=== PATIENT | female | born 1965 | race Caucasian/White ===

== ENCOUNTER → 2017-06-02 | Outpatient (CLI) | payer OTHER ==
[~2017-06-02] MED LIST: LISI5 PO
== END ==
LOC: LAB 19:00 → LAB SHORT 19:00
DX: C34.92 Malignant neoplasm of unspecified part of left bronchus or lung (principal); D70.1 Agranulocytosis secondary to cancer chemotherapy; T45.1X5A Adverse effect of antineoplastic and immunosuppressive drugs, initial encounter
CPT/HCPCS: 87493

== ENCOUNTER 2017-06-20 19:29 | Emergency (ER) | payer OTHER ==
[~2017-06-20] VITALS: Ht 160 cm; Wt 83.9 kg
[2017-06-20 20:46] LABS: BASOPHILS ABSOLUTE AUTO 0.02 K/mm3 (0.00-0.23); BASOPHILS PERCENT AUTO 0 % (0-2); EOSINOPHILS ABSOLUTE AUTO 0.04 K/mm3 (0.00-0.68); EOSINOPHILS PERCENT AUTO 1 % (0-6); Hematocrit 36.8 % (33.0-51.0); IMMATURE GRAN ABSOLUTE AUTO 0.04 K/mm3 (0.00-0.10); IMMATURE GRAN PERCENT AUTO 1 % (0-1); LYMPHOCYTES ABSOLUTE AUTO 1.78 K/mm3 (0.84-5.20); LYMPHOCYTES PERCENT AUTO 31 % (21-46); MONOCYTES ABSOLUTE AUTO 0.47 K/mm3 (0.16-1.47); MONOCYTES PERCENT AUTO 8 % (4-13); Mean Corpuscular HGB 39.6 pg (26.0-34.0); Mean Corpuscular HGB Conc 35.3 g/dL (31.5-36.5); Mean Corpuscular Volume 112 fL (80-100); Mean Platelet Volume 9.2 fL (9.1-12.4); NEUTROPHILS ABSOLUTE AUTO 3.49 K/mm3 (1.96-9.15); NEUTROPHILS PERCENT AUTO 60 % (41-73); Platelet Count 299 K/mm3 (150-400); RDW Coefficient Variation 11.4 % (11.7-14.2); RDW Standard Deviation 46.6 fL (35.1-46.3); Red Blood Cell Count 3.28 M/mm3 (3.80-5.20); White Blood Cell Count 5.84 K/mm3 (4.00-11.30)
[2017-06-20 21:04] LABS: Alanine Aminotransfer (ALT/SGP 30 U/L (12-78); Albumin, Blood 3.9 g/dL (3.4-5.0); Alk Phos 90 U/L (50-136); Anion Gap 10 mmol/L (6-16); Aspartate Aminotrans (AST/SGOT 23 U/L (12-37); Bilirubin, Total 0.1 mg/dL (0.1-1.0); Blood Urea Nitrogen 9 mg/dL (8-24); Bun/Creatinine Ratio 12.8 (12.0-20.0); CO2, Blood 20 mmol/L (21-32); Calcium, Blood 8.5 mg/dL (8.5-10.1); Chloride, Blood 112 mmol/L (98-108); Globulin, Blood 3.9 g/dL (2.2-4.0); Glomerular Filtration Rate >60 (60-); Glucose, Blood 110 mg/dL (70-99); Potassium, Blood 4.1 mmol/L (3.5-5.5); Sodium, Blood 142 mmol/L (136-145); Total Protein, Blood 7.8 g/dL (6.4-8.2); Troponin I <0.015 ng/mL (0.000-0.040)
[2017-06-20] MEDS ORDERED: Norco 5-325 Ta1 EACH PO (23:34)
== END 2017-06-21 00:08 | disposition home or self-care (01) ==
LOC: ER 19:29
PROVIDERS: Physician Assistant
DX: R07.81 Pleurodynia (principal); Z79.899 Other long term (current) drug therapy; I10 Essential (primary) hypertension; F17.210 Nicotine dependence, cigarettes, uncomplicated
CPT/HCPCS: 36415; 71260; 80053; 83690; 84484; 85025; 93005; 93010; J3010; J7030; Q9967

== ENCOUNTER → 2017-07-18 | Outpatient (CLI) | payer OTHER ==
[~2017-07-18] MED LIST changes: +Norco 5-325 Ta1 EACH PO
== END | disposition home or self-care (01) ==
LOC: LAB SHORT 14:28 → LAB EV 14:28
DX: N39.0 Urinary tract infection, site not specified (principal)
CPT/HCPCS: 87077; 87086; 87186

== ENCOUNTER 2017-08-11 16:44 | Emergency (ER) | payer OTHER ==
[~2017-08-11] VITALS: Ht 157.5 cm; Wt 86.2 kg
[~2017-08-11 16:44] MED LIST changes: +ADVIL100 MG; +ALBU90OI; +CEFD300 PO; +CIPR500 PO; +CITA20 PO; +CLOP75; +LATANOPROST2.5 ML; +LEVSOD50; +MONT10T; +PANT40; +Percocet 5-3251 EACH PO; +Prinivil10 MG PO; +SIMV10; +TIMO10T; +TRAZ50 PO; +ZOLP10 PO
== END 2017-08-11 17:47 | disposition left against medical advice (07) ==
LOC: ER 16:44
DX: Z53.21 Procedure and treatment not carried out due to patient leaving prior to being seen by health care provider (principal)

== ENCOUNTER 2017-08-26 01:33 | Emergency (ER) | payer OTHER ==
[~2017-08-26] VITALS: Ht 160 cm; Wt 86.2 kg
[2017-08-26] MEDS ORDERED: Pravastatin Sod40 MG PO (02:08)
[2017-08-26] MEDS ORDERED: LIDO700A20 TOP (03:15)
[2017-08-26] MEDS ORDERED: Percocet 5-3251 EACH PO (03:15)
[2017-08-26] MEDS ORDERED: IBUP600 PO (03:15)
== END 2017-08-26 03:35 | disposition home or self-care (01) ==
LOC: ER 01:33
DX: R07.81 Pleurodynia (principal); Z79.899 Other long term (current) drug therapy; Z87.891 Personal history of nicotine dependence; W01.0XXA Fall on same level from slipping, tripping and stumbling without subsequent striking against object, initial encounter
CPT/HCPCS: 71101; 99283-25

== ENCOUNTER 2017-09-08 21:24 | Emergency (ER) | payer OTHER ==
[~2017-09-08] VITALS: Ht 154.9 cm; Wt 65.8 kg
[~2017-09-08 21:24] MED LIST changes: +IBUP600 PO; +LIDO700A20 TOP; +Pravastatin Sod40 MG PO
== END 2017-09-09 00:23 | disposition left against medical advice (07) ==
LOC: ER 21:24
DX: Z53.21 Procedure and treatment not carried out due to patient leaving prior to being seen by health care provider (principal)
CPT/HCPCS: 71046

== ENCOUNTER 2018-04-23 01:13 | Inpatient (IN) | payer OTHER ==
[~2018-04-23] VITALS: Ht 157.5 cm; Wt 90.1 kg
[2018-04-23 02:16] LABS: Source, Urine Clean Catch
[2018-04-23 02:20] LABS: BASOPHILS ABSOLUTE AUTO 0.04 K/mm3 (0.00-0.23); BASOPHILS PERCENT AUTO 1 % (0-2); Bilirubin, Urine Neg (Neg); Blood, Urine 4+ (Neg); EOSINOPHILS PERCENT AUTO 0 % (0-6); Glucose Qualitative, Urine Neg (Neg); Hematocrit 43.4 % (33.0-51.0); Hemoglobin 13.9 g/dL (11.5-16.0); IMMATURE GRAN ABSOLUTE AUTO 0.09 K/mm3 (0.00-0.10); IMMATURE GRAN PERCENT AUTO 1 % (0-1); Ketones, Urine Neg (Neg); LYMPHOCYTES ABSOLUTE AUTO 0.92 K/mm3 (0.84-5.20); LYMPHOCYTES PERCENT AUTO 11 % (21-46); Leukocyte Esterase, Urine Neg (Neg); MONOCYTES PERCENT AUTO 1 % (4-13); Mean Corpuscular HGB 32.6 pg (26.0-34.0); Mean Corpuscular Volume 102 fL (80-100); Mean Platelet Volume 8.9 fL (9.1-12.4); NEUTROPHILS ABSOLUTE AUTO 7.46 K/mm3 (1.96-9.15); NEUTROPHILS PERCENT AUTO 87 % (41-73); Nitrite, Urine Neg (Neg); Platelet Count 522 K/mm3 (150-400); Protein, Urine 4+ (Neg); RDW Coefficient Variation 12.4 % (11.7-14.2); RDW Standard Deviation 46.8 fL (35.1-46.3); Red Blood Cell Count 4.27 M/mm3 (3.80-5.20); Urobilinogen, Urine NORM (Normal); White Blood Cell Count 8.61 K/mm3 (4.00-11.30)
[2018-04-23 02:25] LABS: Appearance, Urine Clear (Clear); Bacteria Few /hpf; Color, Urine Yellow (P-Yellow); White Blood Cells, Urine 0-2 /hpf (0-5)
[2018-04-23 02:26] LABS: Squamous Epithelial Cells Rare /hpf (Few)
[2018-04-23 02:34] LABS: U Amphetamine Screen Not Detected; U Barbituate Screen Not Detected; U Benzodiazapine Screen Not Detected; U Buprenorphine Screen Not Detected; U Cannabinoids Screen Not Detected; U Cocaine Screen Not Detected; U Methadone Screen Not Detected; U Methamphetamine Screen Not Detected; U Opiates Screen Not Detected; U Oxycodone Screen Not Detected; U Phencyclidine Screen Not Detected; U Propoxyphene Screen Not Detected
[2018-04-23 02:37] LABS: Alanine Aminotransfer (ALT/SGP 43 U/L (12-78); Albumin, Blood 3.4 g/dL (3.4-5.0); Albumin/Globulin Ratio 0.7 (0.8-1.8); Alk Phos 122 U/L (50-136); Anion Gap 16 mmol/L (6-16); Aspartate Aminotrans (AST/SGOT 29 U/L (12-37); Bilirubin, Total 0.1 mg/dL (0.1-1.0); Blood Urea Nitrogen 8 mg/dL (8-24); Bun/Creatinine Ratio 12.5 (12.0-20.0); CO2, Blood 17 mmol/L (21-32); Calcium, Blood 8.8 mg/dL (8.5-10.1); Chloride, Blood 107 mmol/L (98-108); Creatinine, Blood 0.64 mg/dL (0.40-1.00); Globulin, Blood 4.9 g/dL (2.2-4.0); Glomerular Filtration Rate >60 (60-); Glucose, Blood 207 mg/dL (70-99); Potassium, Blood 4.1 mmol/L (3.5-5.5); Sodium, Blood 140 mmol/L (136-145); Total Protein, Blood 8.3 g/dL (6.4-8.2)
[2018-04-23 02:52] LABS: PCO2 Arterial 26.5 mmHg (35-45); PO2 Arterial 99.2 mmHg (80-100); pH Blood Arterial 7.33 (7.35-7.45)
[2018-04-23] MEDS ORDERED: IBUP600 PO (13:17)
[2018-04-23] MEDS ORDERED: (None)20 M1 PO (13:17)
[2018-04-23] MEDS ORDERED: Omeprazole20 M1 PO (13:18)
[2018-04-23] MEDS ORDERED: ALBU3IS INH (13:18)
[2018-04-23] MEDS ORDERED: CITA20 PO (13:20)
[2018-04-23] MEDS ORDERED: HYDHCL25 PO (13:20)
[2018-04-23] MEDS ORDERED: GUAIFEN-CODEINE10 ML PO (13:21)
[2018-04-23] MEDS ORDERED: ONE DAILY FOR1 EACH PO (13:22)
[2018-04-23 22:47] LABS: Adenovirus Not Detected (NOT DETECT); Bordetella pertussis Not Detected (NOT DETECT); Chlamydophila pneumoniae Not Detected (NOT DETECT); Coronavirus 229E Not Detected (NOT DETECT); Coronavirus HKU1 Not Detected (NOT DETECT); Coronavirus NL63 Not Detected (NOT DETECT); Coronavirus OC43 Not Detected (NOT DETECT); Human Metapneumovirus Not Detected (NOT DETECT); Human Rhinovirus/Enterovirus Not Detected (NOT DETECT); Influenza A Not Detected (NOT DETECT); Influenza A/2009-H1 Not Detected (NOT DETECT); Influenza A/H1 Not Detected (NOT DETECT); Influenza A/H3 Not Detected (NOT DETECT); Influenza B Not Detected (NOT DETECT); Mycoplasma pneumoniae Not Detected (NOT DETECT); Parainfluenza Virus 1 Not Detected (NOT DETECT); Parainfluenza Virus 2 Not Detected (NOT DETECT); Parainfluenza Virus 3 Not Detected (NOT DETECT); Parainfluenza Virus 4 Not Detected (NOT DETECT); Respiratory Syncytial Virus Not Detected (NOT DETECT)
--- NOTE | 2018-04-24 00:37 | NUR ---
DR MONZON ASKED DR MONZON IF HE WANTED THE LACTIC ACID LEVEL RECHECKED AND HE SAID "NO."
[2018-04-24] MEDS ORDERED: IMFINZI500 MG/10 IV (02:25)
--- NOTE | 2018-04-24 05:08 | NUR ---
SHIFT SUMMARY PT ARRIVED TO ROOM APPROX 1944. INDEPENDENT IN ROOM A/O C/O SHEEHAN AND GIVEN TYLENOL. TELE SHOWED NSR @ 98 PER SALESPERSON USED CARS. SHE WAS ABLE TO DOZE ON AND OFF T/O NIGHT. MEDICATED FOR COUGH. BREATHING TX SCHEDULED. CALL LIGHT IN REACH
[2018-04-24 05:14] LABS: Hematocrit 33.4 % (33.0-51.0); Hemoglobin 10.8 g/dL (11.5-16.0); Mean Corpuscular HGB 32.5 pg (26.0-34.0); Mean Corpuscular HGB Conc 32.3 g/dL (31.5-36.5); Mean Corpuscular Volume 101 fL (80-100); Mean Platelet Volume 9.3 fL (9.1-12.4); Platelet Count 352 K/mm3 (150-400); RDW Coefficient Variation 12.6 % (11.7-14.2); RDW Standard Deviation 46.1 fL (35.1-46.3); Red Blood Cell Count 3.32 M/mm3 (3.80-5.20); White Blood Cell Count 11.57 K/mm3 (4.00-11.30)
[2018-04-24 05:46] LABS: Alanine Aminotransfer (ALT/SGP 24 U/L (12-78); Albumin, Blood 2.7 g/dL (3.4-5.0); Albumin/Globulin Ratio 0.7 (0.8-1.8); Alk Phos 84 U/L (50-136); Anion Gap 9 mmol/L (6-16); Aspartate Aminotrans (AST/SGOT 9 U/L (12-37); Bilirubin, Total 0.5 mg/dL (0.1-1.0); Blood Urea Nitrogen 20 mg/dL (8-24); Bun/Creatinine Ratio 21.8 (12.0-20.0); CO2, Blood 26 mmol/L (21-32); Calcium, Blood 8.6 mg/dL (8.5-10.1); Chloride, Blood 104 mmol/L (98-108); Creatinine, Blood 0.92 mg/dL (0.40-1.00); Globulin, Blood 3.8 g/dL (2.2-4.0); Glomerular Filtration Rate >60 (60-); Glucose, Blood 230 mg/dL (70-99); Potassium, Blood 4.2 mmol/L (3.5-5.5); Sodium, Blood 139 mmol/L (136-145); Total Protein, Blood 6.5 g/dL (6.4-8.2)
--- NOTE | 2018-04-24 17:11 | NUR ---
PT AOX4 AND COOPERATIVE OF CARE. PT IS ANXIOUS TODAY AND REQUESTED TO GO OUT TO SMOKE. PT HAD TWO CRITICAL LACTIC ACIDS CALLED PLEASE REFER TO CHART. PT INDEPENDENT IN ROOM AND CALLS APPROPRIATELY. PT IS RECIEVING A PICC LINE AND WAS PRETREATED FOR ANXIETY PER EMAR. PT CONTINUES WITH COUGHING AND SOB. WILL CONTINUE TO MONITOR.
--- NOTE | 2018-04-24 18:35 | NUR ---
ORDERS NOTED AND CONSENT SIGNED FOR PICC PLACEMENT. PT TEACHING ON PROCEDURE. PT HIGH ANXIETY LEVEL DESPITE ANXIETY MED GIVEN PER HER RN. VEIN NOTED VIA US R BASILIC AND PROCEDURE STARTED. ONLY ABLE TO THREAD LINE TO 11 CM NITO. LINE PULLED AND PRESSURE HELD. 2X2 GAUZE AND TRANSPARENT DRESSING APPLIED. REPORT GIVEN TO PTS RN AND SUGGEST IV ANXIETY MEDICATION TO BE GIVEN BEFORE NEXT ATTEMPT. PT AMB TO BRP AND RETURNED TO BED. SIDE RAIL UP X2 AND CALL LIGHT WITHIN REACH. DINNER TRAY SET UP FOR PT.
[2018-04-25 01:33] LABS: Adenovirus F 40/41 Not Detected (NOT DETECT); Astrovirus Not Detected (NOT DETECT); Campylobacter Sp Not Detected (NOT DETECT); Cryptosporidium Not Detected (NOT DETECT); Cyclospora Cayetanensis Not Detected (NOT DETECT); E. Coli O157 Not Detected (NOT DETECT); Entamoeba Histolytica Not Detected (NOT DETECT); Enteroaggregative E. coli-EAEC Not Detected (NOT DETECT); Enteropathogenic E. coli-EPEC Not Detected (NOT DETECT); Enterotoxigenic E. coli-ETEC Not Detected (NOT DETECT); Giardia Lamblia Not Detected (NOT DETECT); Norovirus GI/GII Not Detected (NOT DETECT); Plesiomonas Shigelloides Not Detected (NOT DETECT); Rotavirus A Not Detected (NOT DETECT); Salmonella Sp Not Detected (NOT DETECT); Sapovirus Not Detected (NOT DETECT); Shiga Toxin-prod E. coli-STEC Not Detected (NOT DETECT); Shigella/Enteroin E. coli-EIEC Not Detected (NOT DETECT); Vibrio Cholerae Not Detected (NOT DETECT); Vibrio Sp Not Detected (NOT DETECT); Yersinia Enterocolitica Not Detected (NOT DETECT)
--- NOTE | 2018-04-25 04:20 | NUR ---
ASKED CARLOS LEA IF HE WANTED LACTIC ACID LEVEL RECHECKED AND HE SAID NO.
--- NOTE | 2018-04-25 04:36 | NUR ---
SHIFT SUMMARY INDEPENDENT IN ROOM. C/O OF SHEEHAN AND COUGH AND MEDICATED PER EMAR. DR DOUGLASS SAW HER AND SCHEDULED A BIOPSY FOR 04/25 11AM. NPO AFTER MIDNIGHT. STOOL SAMPLE OBTAINED. SHE WAS ABLE TO SLEEP ON AND OFF T/O NIGHT CALL LIGHT IN REACH
[2018-04-25 04:53] LABS: BASOPHILS ABSOLUTE AUTO 0.01 K/mm3 (0.00-0.23); BASOPHILS PERCENT AUTO 0 % (0-2); EOSINOPHILS PERCENT AUTO 0 % (0-6); Hemoglobin 10.3 g/dL (11.5-16.0); IMMATURE GRAN PERCENT AUTO 1 % (0-1); LYMPHOCYTES ABSOLUTE AUTO 0.55 K/mm3 (0.84-5.20); LYMPHOCYTES PERCENT AUTO 6 % (21-46); MONOCYTES ABSOLUTE AUTO 0.56 K/mm3 (0.16-1.47); MONOCYTES PERCENT AUTO 6 % (4-13); Mean Corpuscular HGB 32.5 pg (26.0-34.0); Mean Corpuscular HGB Conc 32.2 g/dL (31.5-36.5); Mean Corpuscular Volume 101 fL (80-100); Mean Platelet Volume 9.3 fL (9.1-12.4); NEUTROPHILS ABSOLUTE AUTO 7.67 K/mm3 (1.96-9.15); NEUTROPHILS PERCENT AUTO 86 % (41-73); Platelet Count 314 K/mm3 (150-400); RDW Coefficient Variation 12.8 % (11.7-14.2); Red Blood Cell Count 3.17 M/mm3 (3.80-5.20); White Blood Cell Count 8.89 K/mm3 (4.00-11.30)
[2018-04-25 05:08] LABS: Anion Gap 10 mmol/L (6-16); Blood Urea Nitrogen 18 mg/dL (8-24); Bun/Creatinine Ratio 20.5 (12.0-20.0); CO2, Blood 24 mmol/L (21-32); Calcium, Blood 8.3 mg/dL (8.5-10.1); Chloride, Blood 107 mmol/L (98-108); Creatinine, Blood 0.88 mg/dL (0.40-1.00); Glomerular Filtration Rate >60 (60-); Glucose, Blood 207 mg/dL (70-99); Potassium, Blood 3.9 mmol/L (3.5-5.5); Sodium, Blood 141 mmol/L (136-145)
[2018-04-25 05:32] LABS: International Normalized Ratio 0.94
--- NOTE | 2018-04-25 08:25 | NUR ---
PATIENT DID NOT EAT BREAKFAST THIS SHIFT DUE TO BEING NPO AT THIS TIME.
--- NOTE | 2018-04-25 11:09 | NUR ---
PATIENT WAS OFFERED A SHOWER AND DELINED. PATIENT STATED SHE WAS GOOD FOR TODAY.
[2018-04-25 13:07] LABS: Vancomycin, Trough 16.3 ug/mL (5.0-10.0)
--- NOTE | 2018-04-26 04:13 | NUR ---
PT REFUSING LAB DRAW THIS AM.
[2018-04-26 05:48] LABS: BASOPHILS ABSOLUTE AUTO 0.02 K/mm3 (0.00-0.23); BASOPHILS PERCENT AUTO 0 % (0-2); EOSINOPHILS ABSOLUTE AUTO 0.01 K/mm3 (0.00-0.68); EOSINOPHILS PERCENT AUTO 0 % (0-6); Hemoglobin 10.9 g/dL (11.5-16.0); IMMATURE GRAN ABSOLUTE AUTO 0.29 K/mm3 (0.00-0.10); IMMATURE GRAN PERCENT AUTO 4 % (0-1); LYMPHOCYTES PERCENT AUTO 13 % (21-46); MONOCYTES ABSOLUTE AUTO 0.79 K/mm3 (0.16-1.47); MONOCYTES PERCENT AUTO 10 % (4-13); Mean Corpuscular HGB 32.7 pg (26.0-34.0); Mean Corpuscular HGB Conc 32.1 g/dL (31.5-36.5); Mean Corpuscular Volume 102 fL (80-100); NEUTROPHILS ABSOLUTE AUTO 5.83 K/mm3 (1.96-9.15); NEUTROPHILS PERCENT AUTO 73 % (41-73); Platelet Count 291 K/mm3 (150-400); RDW Standard Deviation 47.7 fL (35.1-46.3); Red Blood Cell Count 3.33 M/mm3 (3.80-5.20); White Blood Cell Count 7.94 K/mm3 (4.00-11.30)
--- NOTE | 2018-04-26 06:01 | NUR ---
SHIFT SUMMARY NO ACUTE CHANGES THIS SHIFT. PT PLEASANT AND COOPERATIVE BUT FREQUENTLY ANXIOUS. MEDICATED X 1 W/ XANAX. LUNG SOUNDS WHEEZY IN THE BASES. BREATHING TX'S WHILE AWAKE. PERSISTANT COUGH, PAINFUL FOR PATIENT W/ COUGHING. TESSALON PEARLS HELPFUL. MEDICATED X 1 W/ 650 MG TYLENOL FOR THE PAIN. PLAN FOR CHEST XRAY THIS AM. PT REMAINS ON RA. VSS.
[2018-04-26 06:38] LABS: Anion Gap 7 mmol/L (6-16); Blood Urea Nitrogen 22 mg/dL (8-24); Bun/Creatinine Ratio 31.7 (12.0-20.0); CO2, Blood 27 mmol/L (21-32); Calcium, Blood 8.4 mg/dL (8.5-10.1); Chloride, Blood 106 mmol/L (98-108); Glomerular Filtration Rate >60 (60-); Glucose, Blood 150 mg/dL (70-99); Potassium, Blood 3.4 mmol/L (3.5-5.5); Sodium, Blood 140 mmol/L (136-145)
--- NOTE | 2018-04-26 18:26 | NUR ---
SHIFT SUMMARY PT HAS HAD NO ACUTE CHANGES THIS SHIFT, MEDICATED PER MAR FOR PAIN & COUGH, NO OTHER COMPLAINTS OF ANY KIND. WILL CONT TO MONITOR UNTIL REPORT GIVEN TO ZOE CID.
[2018-04-27 04:55] LABS: Hematocrit 37.7 % (33.0-51.0); Mean Corpuscular HGB 32.6 pg (26.0-34.0); Mean Corpuscular HGB Conc 31.8 g/dL (31.5-36.5); Mean Corpuscular Volume 102 fL (80-100); Mean Platelet Volume 9.3 fL (9.1-12.4); Platelet Count 299 K/mm3 (150-400); RDW Standard Deviation 48.2 fL (35.1-46.3); Red Blood Cell Count 3.68 M/mm3 (3.80-5.20); White Blood Cell Count 9.98 K/mm3 (4.00-11.30)
[2018-04-27 05:16] LABS: Anion Gap 10 mmol/L (6-16); Blood Urea Nitrogen 26 mg/dL (8-24); Bun/Creatinine Ratio 40.4 (12.0-20.0); CO2, Blood 24 mmol/L (21-32); Chloride, Blood 103 mmol/L (98-108); Creatinine, Blood 0.64 mg/dL (0.40-1.00); Glomerular Filtration Rate >60 (60-); Glucose, Blood 221 mg/dL (70-99); Potassium, Blood 4.3 mmol/L (3.5-5.5); Sodium, Blood 137 mmol/L (136-145)
--- NOTE | 2018-04-27 05:38 | NUR ---
SHIFT SUMMARY PT SLEPT FOR FIRST PART OF SHIFT BUT WOKE AT APPROX 0200 AND WAS UNABLE TO FALL BACK ASLEEP. LUNG SOUNDS CONTINUE TO BE WHEEZY AND PT HAS HARSH NONPRODUCTIVE COUGH. PT PAINFUL IN BACK AND RIBS WITH COUGHING. MEDICATED W/ TYLENOL NEEDED. ROBITUSSIN ALSO HELPFUL WITH COUGH. REMAINS ON RA WITH GOOD O2 SATS. VSS. NO ACUTE CHANGES. WILL CONTINUE TO MONITOR.
[2018-04-27 06:24] LABS: BAND PERCENT MAN 2 % (0-8); BASOPHILS PERCENT MAN 0 % (0-2); EOSINOPHILS PERCENT MAN 0 % (0-6); LYMPHOCYTES ABSOLUTE MAN 0.59 K/mm3 (0.84-5.20); LYMPHOCYTES PERCENT MAN 6 % (21-46); METAMYELOCYTE ABSOLUTE MAN 0.09 K/mm3 (0.00-0.00); METAMYELOCYTE PERCENT MAN 1 % (0-0); MONOCYTES ABSOLUTE MAN 1.29 K/mm3 (0.16-1.47); MONOCYTES PERCENT MAN 13 % (4-13); MYELOCYTE ABSOLUTE MAN 0.19 K/mm3 (0.00-0.00); MYELOCYTE PERCENT MAN 2 % (0-0); NEUTROPHILS ABSOLUTE MAN 7.78 K/mm3 (1.96-9.15); SEG NEUTROPHILS PERCENT MAN 76 % (41-73); TOTAL CELLS COUNTED 100
--- NOTE | 2018-04-27 18:18 | NUR ---
SUMMARY PT IS A/O X4, PLEASANT AFFECT HOWEVER @ X'S ANXIOUS/CONCERNED R/T HX OF LUNG CA. SHE IS IND IN ROOM, HAS BEEN UP AMBULATE IN [facility] W/O SIGNIFICANT SHORTNESS OF BREATH. SHE STATE CONTINUING DRY COUGH, PRN TESSALON & GUIF/CODEINE SYRUP PROVIDED FOR RELIEF/CONTROL. DR WEAVERTRATE ORDER INCENTIVE SPIROMETER, PT INSTRUCTED ON USE, @ BEDSIDE. DR STATE TO PROVIDE O2 @ 1-2L VIA N/C FOR SOB, PT HAS USED INTERMITTANTLY, BIOX 95% RA. RT PROVIDING NEB TX'S. DR PENA HAS BEEN CONSULTED FOR PULMOMOLOGY.
--- NOTE | 2018-04-28 05:00 | NUR ---
SHIFT SUMMARY NO ACUTE CHANGES. PT CONTINUES TO FEEL SOB AT TIMES. DID NOT REQUIRE ANY O2 THROUGHOUT THE NIGHT. LUNG SOUNDS CONTINUE TO BE WHEEZY. DRY HACKING COUGH. ROBITUSSIN AND TESSALON PEARLS GIVEN NEEDED. PT PAINFUL W/ COUGHING, TYLENOL 650 MG GIVEN X 1. OTHERWISE PT HAD UNEVENTFUL NIGHT. SLEPT THROUGH MOST OF THE NIGHT. VSS. WILL CONTINUE TO MONITOR.
--- NOTE | 2018-04-28 19:35 | NUR ---
SHIFT SUMMARY- PT SEEMS TO BE FEELING MORE ENERGETIC THIS EVEINING, SHE WALKED DOWN TO THE VENDING MACHINE TO GET SNACK FOODS, STATED SHE HAS THE "MUNCHIES" D/T THE STEROIDS. PT BG HAS BEEN WNL AND SHE HAS NEEDED NO INSULIN COVERAGE. IV LASIX GIVEN THIS MORNING, PT ALERT, ORIENTED AND INDEPENDENT IN THE ROOM. PT CURRENTLY SITTING IN THE CHAIR, CALL LIGHT IN REACH.
[2018-04-29 04:49] LABS: Hematocrit 41.4 % (33.0-51.0); Hemoglobin 13.6 g/dL (11.5-16.0); Mean Corpuscular HGB 32.8 pg (26.0-34.0); Mean Corpuscular HGB Conc 32.9 g/dL (31.5-36.5); Mean Corpuscular Volume 100 fL (80-100); Mean Platelet Volume 9.3 fL (9.1-12.4); Platelet Count 338 K/mm3 (150-400); RDW Coefficient Variation 13.2 % (11.7-14.2); Red Blood Cell Count 4.15 M/mm3 (3.80-5.20); White Blood Cell Count 13.85 K/mm3 (4.00-11.30)
[2018-04-29 05:08] LABS: Anion Gap 11 mmol/L (6-16); Blood Urea Nitrogen 32 mg/dL (8-24); Bun/Creatinine Ratio 45.4 (12.0-20.0); CO2, Blood 24 mmol/L (21-32); Calcium, Blood 8.6 mg/dL (8.5-10.1); Chloride, Blood 100 mmol/L (98-108); Creatinine, Blood 0.71 mg/dL (0.40-1.00); Glomerular Filtration Rate >60 (60-); Glucose, Blood 201 mg/dL (70-99); Potassium, Blood 4.1 mmol/L (3.5-5.5); Sodium, Blood 135 mmol/L (136-145)
[2018-04-29 05:32] LABS: BAND PERCENT MAN 3 % (0-8); BASOPHILS PERCENT MAN 0 % (0-2); EOSINOPHILS PERCENT MAN 0 % (0-6); LYMPHOCYTES ABSOLUTE MAN 1.24 K/mm3 (0.84-5.20); LYMPHOCYTES PERCENT MAN 9 % (21-46); METAMYELOCYTE ABSOLUTE MAN 0.27 K/mm3 (0.00-0.00); METAMYELOCYTE PERCENT MAN 2 % (0-0); MONOCYTES ABSOLUTE MAN 0.69 K/mm3 (0.16-1.47); MONOCYTES PERCENT MAN 5 % (4-13); MYELOCYTE ABSOLUTE MAN 0.13 K/mm3 (0.00-0.00); MYELOCYTE PERCENT MAN 1 % (0-0); NEUTROPHILS ABSOLUTE MAN 11.49 K/mm3 (1.96-9.15); SEG NEUTROPHILS PERCENT MAN 80 % (41-73); TOTAL CELLS COUNTED 100
--- NOTE | 2018-04-29 05:50 | NUR ---
VSS, AFEBRILE, A/O, C/O SOB/LQUUE AND WILL REQUEST BREATHING TREATMENTS PRN, CBG AC HS, INDEPENDENT IN THE ROOM, 1L NC FOR COMFORT, PLEASANT AND FRIENDLY. SLEPT WELL ALL NOC.
[2018-04-29] MEDS ORDERED: ACET325 PO (16:22)
[2018-04-29] MEDS ORDERED: BENZ100A PO (16:22)
[2018-04-29] MEDS ORDERED: BISA10S PR (16:23)
[2018-04-29] MEDS ORDERED: NATURAL CALCIU500 MG PO (16:23)
[2018-04-29] MEDS ORDERED: FURO20 PO (16:24)
[2018-04-29] MEDS ORDERED: NICO21TP TOP (16:25)
[2018-04-29] MEDS ORDERED: HUMALOG KW200 UNIT/1 (16:25)
[2018-04-29] MEDS ORDERED: POTCHL20ER PO (16:26)
[2018-04-29] MEDS ORDERED: ONDA4ODT MM (16:26)
[2018-04-29] MEDS ORDERED: DEEP SEA44 ML (16:27)
[2018-04-29] MEDS ORDERED: PANT40 PO (16:28)
[2018-04-29] MEDS ORDERED: BUDE.25 NEB (16:28)
--- NOTE | 2018-04-29 16:56 | NUR ---
DISCHARGE NOTE PT DC'D VIA W/C WITH [facility]. WRITTEN AND FAXED RX PROVIDED. PT GIVEN DETAILED INSTRUCTIONS ON FOLLOW UP APPTS AND IMPORTANCE OF TAKING MEDICATIONS PRESCRIBED. ENCOURAGED TO RETURN WITH ANY WORSENING SYMPTOMS. IV DISCONTINUED INTACT AND ALL BELONGINGS SENT WITH PATIENT AT TIME OF DC.
== END 2018-04-29 17:10 | disposition home or self-care (01) | DRG 871 ==
LOC: ER 01:13 → MEDS 05:53 → ERHOLD 05:53 → MEDS 19:44
PROVIDERS: Emergency Medicine; Family Medicine; Internal Medicine; Internal Medicine Critical Care Medicine; Pharmacist; ADMIT Internal Medicine
PROC: 0B9G8ZX Drainage of Left Upper Lung Lobe, Via Natural or Artificial Opening Endoscopic, Diagnostic (ICD-10-PCS; principal; 2018-04-25 10:30)
PROC: 0BD88ZX Extraction of Left Upper Lobe Bronchus, Via Natural or Artificial Opening Endoscopic, Diagnostic (ICD-10-PCS; 2018-04-25 10:30)
DX: A41.9 Sepsis, unspecified organism (principal); J18.9 Pneumonia, unspecified organism; C34.90 Malignant neoplasm of unspecified part of unspecified bronchus or lung; F17.210 Nicotine dependence, cigarettes, uncomplicated; R73.9 Hyperglycemia, unspecified; R19.7 Diarrhea, unspecified; T38.0X5A Adverse effect of glucocorticoids and synthetic analogues, initial encounter; J45.909 Unspecified asthma, uncomplicated
CPT/HCPCS: 36415; 36600; 71046; 80048; 80053; 80202; 81001; 82803; 82947; 83036; 83605; 83880; 84145; 85025; 85027; 85610; 85730; 86635; 87015; 87040; 87045; 87046; 87071; 87177; 87205; 87209; 87486; 87507; 87581; 87633; 87798; 87899; 88108; 88305; 88312; 93005; 93010; 94640; 94760; 94761; 94762; 96361; 96374; 96375; 96376; 99285-25; J1650; J1940; J1956; J2250; J2405; J2543; J2920; J2930; J3010; J3370; J7030; J7050; J7120; Q0163

== ENCOUNTER 2018-08-22 01:45 | Emergency (ER) | payer OTHER ==
[~2018-08-22 01:45] MED LIST changes: +(None)20 M1 PO; +ACET325 PO; +ALBU3IS INH; +BENZ100A PO; +BISA10S PR; +BUDE.25 NEB; +DEEP SEA44 ML; +FURO20 PO; +GUAIFEN-CODEINE10 ML PO; +HUMALOG KW200 UNIT/1; +HYDHCL25 PO; +IMFINZI500 MG/10 IV; +NATURAL CALCIU500 MG PO; +NICO21TP TOP; +ONDA4ODT MM; +ONE DAILY FOR1 EACH PO; +Omeprazole20 M1 PO; +PANT40 PO; +POTCHL20ER PO
== END 2018-08-22 03:08 | disposition left against medical advice (07) ==
LOC: ER 01:45
DX: Z53.21 Procedure and treatment not carried out due to patient leaving prior to being seen by health care provider (principal)

== ENCOUNTER 2019-01-05 00:34 | Emergency (ER) | payer OTHER ==
[~2019-01-05] VITALS: Ht 154.9 cm; Wt 81.7 kg
== END 2019-01-05 01:46 ==
LOC: ER 00:34
DX: Z04.71 Encounter for examination and observation following alleged adult physical abuse (principal); F17.210 Nicotine dependence, cigarettes, uncomplicated; Z79.899 Other long term (current) drug therapy; Z79.51 Long term (current) use of inhaled steroids; Z79.52 Long term (current) use of systemic steroids; Z79.4 Long term (current) use of insulin
CPT/HCPCS: 70450; 99284-25

== ENCOUNTER 2019-07-07 04:30 | Emergency (ER) | payer MEDICARE, OTHER ==
[~2019-07-07] VITALS: Ht 152.4 cm; Wt 113.4 kg
[2019-07-07 04:44] LABS: Source, Urine Clean Catch
[2019-07-07 04:46] LABS: Bilirubin, Urine Neg (Neg); Blood, Urine 3+ (Neg); Glucose Qualitative, Urine Neg (Neg); Ketones, Urine Neg (Neg); Leukocyte Esterase, Urine Neg (Neg); Nitrite, Urine Neg (Neg); Protein, Urine 3+ (Neg); Urobilinogen, Urine NORM (Normal)
[2019-07-07 04:47] LABS: Appearance, Urine Clear (Clear); Color, Urine Yellow (P-Yellow)
[2019-07-07 04:52] LABS: Bacteria Few /hpf; Red Blood Cells, Urine 0-2 /hpf (0-2); Squamous Epithelial Cells Mod /hpf (Few)
[2019-07-07 04:57] LABS: BASOPHILS ABSOLUTE AUTO 0.03 K/mm3 (0.00-0.23); BASOPHILS PERCENT AUTO 1 % (0-2); EOSINOPHILS ABSOLUTE AUTO 0.19 K/mm3 (0.00-0.68); EOSINOPHILS PERCENT AUTO 3 % (0-6); Hematocrit 39.3 % (33.0-51.0); IMMATURE GRAN ABSOLUTE AUTO 0.02 K/mm3 (0.00-0.10); IMMATURE GRAN PERCENT AUTO 0 % (0-1); LYMPHOCYTES ABSOLUTE AUTO 2.16 K/mm3 (0.84-5.20); LYMPHOCYTES PERCENT AUTO 33 % (21-46); MONOCYTES ABSOLUTE AUTO 0.49 K/mm3 (0.16-1.47); MONOCYTES PERCENT AUTO 8 % (4-13); Mean Corpuscular HGB 31.3 pg (26.0-34.0); Mean Corpuscular HGB Conc 33.1 g/dL (31.5-36.5); Mean Corpuscular Volume 95 fL (80-100); Mean Platelet Volume 9.2 fL (9.1-12.4); NEUTROPHILS ABSOLUTE AUTO 3.63 K/mm3 (1.96-9.15); NEUTROPHILS PERCENT AUTO 56 % (41-73); Platelet Count 249 K/mm3 (150-400); RDW Coefficient Variation 13.1 % (11.7-14.2); Red Blood Cell Count 4.15 M/mm3 (3.80-5.20); White Blood Cell Count 6.52 K/mm3 (4.00-11.30)
[2019-07-07 04:58] LABS: U Amphetamine Screen Not Detected; U Barbituate Screen Not Detected; U Benzodiazapine Screen Not Detected; U Buprenorphine Screen Not Detected; U Cannabinoids Screen Not Detected; U Cocaine Screen Not Detected; U Methadone Screen Not Detected; U Methamphetamine Screen Not Detected; U Opiates Screen DETECTED; U Oxycodone Screen Not Detected; U Phencyclidine Screen Not Detected; U Propoxyphene Screen Not Detected
[2019-07-07 05:16] LABS: Alanine Aminotransfer (ALT/SGP 31 U/L (12-78); Albumin, Blood 3.3 g/dL (3.4-5.0); Albumin/Globulin Ratio 0.9 (0.8-1.8); Alk Phos 112 U/L (50-136); Anion Gap 11 mmol/L (6-16); Aspartate Aminotrans (AST/SGOT 26 U/L (12-37); Bilirubin, Total 0.2 mg/dL (0.1-1.0); Blood Urea Nitrogen 9 mg/dL (8-24); Bun/Creatinine Ratio 13.4 (12.0-20.0); CO2, Blood 21 mmol/L (21-32); Calcium, Blood 7.9 mg/dL (8.5-10.1); Chloride, Blood 109 mmol/L (98-108); Creatinine, Blood 0.67 mg/dL (0.40-1.00); Ethanol (Alcohol), Blood, Med 216 mg/dL; Globulin, Blood 3.8 g/dL (2.2-4.0); Glomerular Filtration Rate >60 (60-); Glucose, Blood 160 mg/dL (70-99); Potassium, Blood 3.4 mmol/L (3.5-5.5); Salicylate 3.1 mg/dL (2.8-20.0); Sodium, Blood 141 mmol/L (136-145); Total Protein, Blood 7.1 g/dL (6.4-8.2)
[2019-07-07 05:21] LABS: Acetaminophen, Random <2.0 ug/mL (10.0-30.0)
[2019-07-09 10:47] LABS: Carcinoembryonic Antigen 2.4 ng/mL (0.0-3.0); Percent Saturation 21.1 % (15.0-50.0)
== END 2019-07-07 05:33 | disposition home or self-care (01) ==
LOC: ER 04:30
PROVIDERS: Emergency Medicine; Internal Medicine Hematology & Oncology
DX: F10.129 Alcohol abuse with intoxication, unspecified (principal); F17.210 Nicotine dependence, cigarettes, uncomplicated; Y90.7 Blood alcohol level of 200-239 mg/100 ml; Z79.899 Other long term (current) drug therapy; Z79.51 Long term (current) use of inhaled steroids; Z79.4 Long term (current) use of insulin
CPT/HCPCS: 36415; 80053; 81001; 81025; 82378; 82728; 83540; 83550; 83690; 85025; 99284; G0480

== ENCOUNTER 2019-12-25 08:38 | Day surgery (SDC) | payer MEDICARE, OTHER | END 2019-12-25 22:55 | disposition home or self-care (01) | LOC: MOI US 08:38 → MOI MAM 09:00 → MOI US 09:00 | DX: N60.31 Fibrosclerosis of right breast (principal); Z79.52 Long term (current) use of systemic steroids; Z79.4 Long term (current) use of insulin; Z79.899 Other long term (current) drug therapy | CPT/HCPCS: 19083; 77065; 88305; A4648 ==

== ENCOUNTER 2021-02-08 06:11 | Inpatient (IN) | payer MEDICARE, OTHER ==
[~2021-02-08] VITALS: Ht 160 cm; Wt 94.3 kg
--- NOTE | 2021-02-08 06:36 | NUR ---
Ambulatory in Day Surgery History, Chart, Medications and Allergies reviewed before start of procedure. Lungs clear T/O to Auscultation. Pre-Op teaching done. Pt verbalizes understanding. Patient States Post-Procedure ride home has been arranged.
[2021-02-08] MEDS ORDERED: OXYC5 PO (15:32)
[2021-02-08] MEDS ORDERED: SULTRIDS PO (15:33)
--- NOTE | 2021-02-08 16:02 | NUR ---
DISCHARGE PT HAS CLEARED THERAPY. PAIN REASONABLY CONTROLLED. EATING, DRINKING, & VOIDING WELL. DRSGS & POLAR PACK SENT w/ PT. ESCORTED OUT VIA W/C. FATHER WAITING IN CAR FOR PT.
== END 2021-02-08 16:00 | disposition home or self-care (01) | DRG 483 ==
LOC: ORSCMMR 06:11 → SURS 07:01 → ORSCMMR 07:30 → ORD 07:30 → SURS 11:09
PROVIDERS: ADMIT Orthopaedic Surgery
PROC: 0RRJ00Z Replacement of Right Shoulder Joint with Reverse Ball and Socket Synthetic Substitute, Open Approach (ICD-10-PCS; principal; 2021-02-08 07:30)
DX: M19.011 Primary osteoarthritis, right shoulder (principal); M75.121 Complete rotator cuff tear or rupture of right shoulder, not specified as traumatic; M81.0 Age-related osteoporosis without current pathological fracture; F32.A Depression, unspecified; F41.9 Anxiety disorder, unspecified; J44.9 Chronic obstructive pulmonary disease, unspecified; G47.33 Obstructive sleep apnea (adult) (pediatric); E66.9 Obesity, unspecified; Z68.36 Body mass index [BMI] 36.0-36.9, adult; Z87.891 Personal history of nicotine dependence; Z85.118 Personal history of other malignant neoplasm of bronchus and lung; Z88.5 Allergy status to narcotic agent; Z79.899 Other long term (current) drug therapy; Z79.1 Long term (current) use of non-steroidal anti-inflammatories (NSAID); Z79.51 Long term (current) use of inhaled steroids
CPT/HCPCS: 73030; 97110; 97116; 97162; 97530; A9270; C1713; C1776; J0171; J0696; J0735; J1100; J1885; J2060; J2250; J2405; J2704; J2795; J3010; J7120

== ENCOUNTER → 2022-01-11 | Outpatient (CLI) | payer MEDICARE, OTHER ==
[~2022-01-11] MED LIST changes: +OXYC5 PO; +SULTRIDS PO
== END ==
LOC: LAB SHORT 14:36 → LAB 14:36
DX: N39.0 Urinary tract infection, site not specified (principal)
CPT/HCPCS: 87086

== ENCOUNTER 2023-08-09 20:43 | Emergency (ER) | payer MEDICARE, OTHER ==
[~2023-08-09] VITALS: Ht 160 cm; Wt 81.7 kg
[2023-08-09 21:06] VITALS: BP 154/62
[2023-08-09] MEDS ORDERED: RX Prepack 6 Tabs Oxycodone 5mg UD ONE (21:40)
[2023-08-09] MEDS ORDERED: Percocet 5-3251 EACH PO (21:41)
== END 2023-08-09 21:57 | disposition home or self-care (01) ==
LOC: ER 20:43
DX: M25.462 Effusion, left knee (principal); X50.1XXA Overexertion from prolonged static or awkward postures, initial encounter; Z88.5 Allergy status to narcotic agent; Z79.899 Other long term (current) drug therapy; E78.5 Hyperlipidemia, unspecified; F17.210 Nicotine dependence, cigarettes, uncomplicated
CPT/HCPCS: 73562-LT; 99283-25; A9270

== ENCOUNTER 2023-09-01 02:01 | Inpatient (IN) | payer MEDICARE, OTHER ==
[2023-09-01] VITALS (36 sets, daily range): BP systolic 73–114; BP diastolic 54–80
[~2023-09-01] VITALS: Ht 154.9 cm; Wt 102.5 kg
[2023-09-01 02:22] LABS: Source, Urine Clean Catch
[2023-09-01 02:23] LABS: Bilirubin, Urine Neg (Neg); Blood, Urine 5+ (Neg); Glucose Qualitative, Urine Neg (Neg); Ketones, Urine Neg (Neg); Leukocyte Esterase, Urine 3+ (Neg); Nitrite, Urine Neg (Neg); Protein, Urine 3+ (Neg); Urobilinogen, Urine 1+ (Normal)
[2023-09-01] MEDS ORDERED: Ondansetron HCl 2 MG / ML 2ML Vial IV PRN (02:25)
[2023-09-01] MEDS ORDERED: NS 1,000 ML IV ONE (02:34)
[2023-09-01 02:40] LABS: Appearance, Urine Hazy (Clear); Color, Urine Yellow (P-Yellow)
[2023-09-01 02:40] LABS: Hematocrit 38.8 % (33.0-51.0); Hemoglobin 13.2 g/dL (11.5-16.0); Mean Corpuscular HGB 31.7 pg (26.0-34.0); Mean Corpuscular Volume 93 fL (80-100); Mean Platelet Volume 10.3 fL (9.1-12.4); NRBC ABSOLUTE 0.04 K/mm3 (0.00-0.02); NRBC Auto 0.5 /100 WBC (0.0-0.2); Platelet Count 146 K/mm3 (150-400); RDW Standard Deviation 44.4 fL (35.1-46.3); Red Blood Cell Count 4.16 M/mm3 (3.80-5.20); White Blood Cell Count 7.65 K/mm3 (4.00-11.30)
[2023-09-01 02:42] LABS: Bacteria Many /hpf; Squamous Epithelial Cells Few /hpf (Few); White Blood Cells, Urine TNTC /hpf (0-5)
[2023-09-01 02:58] LABS: Albumin, Blood 2.3 g/dL (3.4-5.0); Albumin/Globulin Ratio 0.4 (0.8-1.8); Bilirubin, Total 1.2 mg/dL (0.1-1.0); Bun/Creatinine Ratio 17.5 (12.0-20.0); Calcium, Blood 8.8 mg/dL (8.5-10.1); Creatinine, Blood 1.37 mg/dL (0.40-1.00); Globulin, Blood 5.2 g/dL (2.2-4.0); Potassium, Blood 3.8 mmol/L (3.5-5.5); Total Protein, Blood 7.5 g/dL (6.4-8.2)
[2023-09-01] MEDS ORDERED: NS 1,000 ML IV SCH ×3 (03:00→07:30)
[2023-09-01 03:16] LABS: BAND PERCENT MAN 4 % (0-8); BASOPHILS PERCENT MAN 0 % (0-2); EOSINOPHILS PERCENT MAN 0 % (0-6); LYMPHOCYTES ABSOLUTE MAN 0.45 K/mm3 (0.84-5.20); LYMPHOCYTES PERCENT MAN 6 % (21-46); MONOCYTES ABSOLUTE MAN 0.45 K/mm3 (0.16-1.47); MONOCYTES PERCENT MAN 6 % (4-13); NEUTROPHILS ABSOLUTE MAN 6.73 K/mm3 (1.96-9.15); SEG NEUTROPHILS PERCENT MAN 84 % (41-73); TOTAL CELLS COUNTED 100
[2023-09-01] MEDS ORDERED: ESTRADIOL42.5 GM VAG (03:24)
[2023-09-01] MEDS ORDERED: ZOLPIDEM TARTRA10 MG PO (03:24)
[2023-09-01] MEDS ORDERED: BUPROPION HCL200 M1 PO (03:24)
[2023-09-01] MEDS ORDERED: Hydroxyzine HCl50 MG (03:24)
[2023-09-01] MEDS ORDERED: ROSUVASTATIN CA20 MG PO (03:25)
[2023-09-01] MEDS ORDERED: Ciprofloxacin 400MG/D5 200ML 200 ML IV ONE (04:30)
[2023-09-01] MEDS ORDERED: FentaNYL Citrate 50 MCG/ML 2 ML Injection IV ONE (05:05)
[2023-09-01] MEDS ORDERED: LORazepam 2 MG/ML 1ML Injection IV ONE (06:35)
[2023-09-01] MEDS ORDERED: Vancomycin HCL 1,500 MG in NS 250 ML IV ONE (06:45)
[2023-09-01] MEDS ORDERED: Ibuprofen 600 MG Tab PO ONE (06:45)
[2023-09-01] MEDS ORDERED: Acetaminophen 325 MG TABLET PO ONE (06:45)
[2023-09-01] MEDS ORDERED: Lactated Ringer's 1,000 ML IV SCH ×2 (07:25→13:15)
[2023-09-01] MEDS ORDERED: Loperamide HCl 2 MG Cap PO ONE (07:25)
[2023-09-01] MEDS ORDERED: Prochlorperazine Edisylate 10 mg Vial IV PRN (07:30)
[2023-09-01] MEDS ORDERED: Zolpidem Tartrate 5 MG Tab PO PRN (07:35)
[2023-09-01] MEDS ORDERED: Magnesium Hydroxide Conc 10 ML UDC PO PRN (07:35)
[2023-09-01] MEDS ORDERED: Bisacodyl 10 MG Supp PR PRN (07:40)
[2023-09-01] MEDS ORDERED: Acetaminophen 650 MG Supp PR PRN (07:40)
[2023-09-01] MEDS ORDERED: HyDROXyzine HCl 10 MG Tab PO PRN (07:40)
[2023-09-01] MEDS ORDERED: Acetaminophen 325 MG TABLET PO PRN (07:40)
[2023-09-01] MEDS ORDERED: Famotidine 10 MG/ML 2ML Vial IV SCH (09:00)
[2023-09-01] MEDS ORDERED: Citalopram Hydrobromide 20 MG Tab PO SCH (09:00)
[2023-09-01] MEDS ORDERED: Lactobacil 2-S.Thermo-Bifido 1 1 Cap PO SCH (09:00)
[2023-09-01] MEDS ORDERED: BuPROPion HCl SR 100 MG TabCR PO SCH (09:00)
[2023-09-01] MEDS ORDERED: OxyCODONE HCL 5 MG TAB PO PRN (09:05)
[2023-09-01 10:01] LABS: Source, Urine Foley catheter
[2023-09-01 10:04] LABS: Appearance, Urine Hazy (Clear); Bilirubin, Urine Neg (Neg); Blood, Urine 5+ (Neg); Color, Urine Brown (P-Yellow); Glucose Qualitative, Urine Neg (Neg); Ketones, Urine 1+ (Neg); Leukocyte Esterase, Urine 3+ (Neg); Nitrite, Urine Neg (Neg); Protein, Urine 4+ (Neg); Specific Gravity, Urine 1.015 (1.003-1.022); Urobilinogen, Urine 1+ (Normal)
[2023-09-01 10:11] LABS: Amorphous Light (0-Heavy); Bacteria Many /hpf; Red Blood Cells, Urine 25-50 /hpf (0-2); Squamous Epithelial Cells Few /hpf (Few)
[2023-09-01 10:12] LABS: White Blood Cells, Urine 50-100 /hpf (0-5)
[2023-09-01 10:13] LABS: Renal Epithelial Rare /hpf (0-Rare)
[2023-09-01] MEDS ORDERED: OMEP20ER PO (12:57)
--- NOTE | 2023-09-01 13:18 | NUR ---
CARE ASSUMPTION PT ARRIVED FROM ER AND WAS TRANSFERED TO ICU BED. PT HYP;OTENSIVE UPON ARRIVAL W MAP IN THE 50'S. PROVIDER CONTACTED AND LEVOPHED GTT ORDER OBTAINED. MONITOR SHOWING SR 90'S. SPO2 >92% OMN RM, AIR. PT AFEBRILE W ORAL TEMP 97.9. LR INFUSING AT 200 ML/HR.
[2023-09-01] MEDS ORDERED: Ciprofloxacin 400MG/D5 200ML 200 ML IV SCH (16:00)
--- NOTE | 2023-09-01 18:27 | NUR ---
DAY SHIFT SUMMARY PT ARRIVED TO ICU ND HAS REMAINED ALERT AND ORIENTED SINCE ARRIVAL. PT'S BP LOW ON ARRIVAL SO LEVOPHED GTT STARTED AND THE PT MAINTAINED MAP >65 W LEVOPHED GTT AT 6 MCG/MIN AND LR INFUSING AT 200ML/HR. LEVOPHED GTT TURNED DOWN TO 4 MCG/MIN JUST PRIOR TO SHIFT CHANGE, SEE FLOWSHEET FOR DETAILS. PT ARRIVED TO THE UNIT W MONITOR SHOWING SR 90'S BUT HAD COME DOWN TO A HR OF LOW 80'S AND REMAINED STABLE. PT AFEBRILE SINCE ARRIVAL W ORAL TEMPS STABLE. PT HAS DENIED NAUSEA OR PAIN TOLERATING PO INTAKE WELL. PT HAS NOT HAD A BM SINCE ARRIVAL. PT'S DAVILA PATENT AND DRAINING 500ML DARK ABIMAEL URINE THIS SHIFT. PT WAS ABLE TO EAT MOST OF HER FULL LIQUID DINNER AND IS CURRENTLY RESTING COMFORTABLY IN BED. WILL REPORT TO ONCOMING RN.
--- NOTE | 2023-09-01 22:59 | NUR ---
ASSUMED CARE CARE WAS ASSUMED OF PT AT 1900. PT A/Ox4, ABLE TO ANSWER QUESTIONS APPROPRIATELY. PT ENDORSES PAIN, MEDICATING PER EMAR. PT ON RA, O2 SAT > 90%. CARDIAC MONITORING REFLECTS NSR, HR 80s. LEVOPHED GTT INFUSING FOR MAP GOAL > 65, SEE FLOWSHEET. DAVILA PATENT AND DRAINING TO GRAVITY. PIV x2. LR INFUSING @ 200 mL/HR.
[2023-09-01] MEDS ORDERED: NS 250 ML IV PRN (23:30)
[2023-09-02] VITALS (38 sets, daily range): BP systolic 84–132; BP diastolic 57–96
[2023-09-02 04:00] LABS: Hematocrit 31.8 % (33.0-51.0); Hemoglobin 10.4 g/dL (11.5-16.0); Mean Corpuscular HGB 31.6 pg (26.0-34.0); Mean Corpuscular HGB Conc 32.7 g/dL (31.5-36.5); Mean Corpuscular Volume 97 fL (80-100); Mean Platelet Volume 10.8 fL (9.1-12.4); Platelet Count 132 K/mm3 (150-400); RDW Coefficient Variation 13.5 % (11.7-14.2); RDW Standard Deviation 48.1 fL (35.1-46.3); Red Blood Cell Count 3.29 M/mm3 (3.80-5.20); White Blood Cell Count 7.41 K/mm3 (4.00-11.30)
[2023-09-02 04:22] LABS: BAND PERCENT MAN 10 % (0-8); BASOPHILS PERCENT MAN 0 % (0-2); EOSINOPHILS PERCENT MAN 0 % (0-6); LYMPHOCYTES ABSOLUTE MAN 0.59 K/mm3 (0.84-5.20); LYMPHOCYTES PERCENT MAN 8 % (21-46); MONOCYTES ABSOLUTE MAN 0.81 K/mm3 (0.16-1.47); MONOCYTES PERCENT MAN 11 % (4-13); SEG NEUTROPHILS PERCENT MAN 71 % (41-73); TOTAL CELLS COUNTED 100
[2023-09-02 04:42] LABS: Albumin, Blood 1.8 g/dL (3.4-5.0); Albumin/Globulin Ratio 0.4 (0.8-1.8); Bilirubin, Total 0.5 mg/dL (0.1-1.0); Bun/Creatinine Ratio 23.9 (12.0-20.0); Calcium, Blood 7.9 mg/dL (8.5-10.1); Creatinine, Blood 1.42 mg/dL (0.40-1.00); Globulin, Blood 4.5 g/dL (2.2-4.0); Magnesium, Blood 2.1 mg/dL (1.6-2.4); Potassium, Blood 3.8 mmol/L (3.5-5.5); Total Protein, Blood 6.3 g/dL (6.4-8.2)
--- NOTE | 2023-09-02 06:19 | NUR ---
SHIFT SUMMARY PT REMAINS A/O X4. PT 1 ASSIST WITH FWW TO AMBULATE. MEDICATED PT FOR PAIN PER EMAR T/O SHIFT. PT REMAINS ON RA, O2 SATS > 90%. CARDIAC MONITORING REFLECTS NSR, HR 90s AT THIS TIME. LEVOPHED PUT ON SB THIS SHIFT, MAP > 65. PIV X2. LR INFUSING @ 200 mL/HR. DAVILA PATENT AND DRAINING TO GRAVITY. PT HAD 2150 mL URINE OUT THIS SHIFT.
--- NOTE | 2023-09-02 07:00 | NUR ---
CARE ASSUMPTION DURING BEDSIDE SHIFT REPORT W JOHN PAUL CID THE PT IS SITTING UP IN THE RECLINER WATCHING TV. PT IS ALERT AND ORIENTED COMMUNICATING APPROPRIATELY W STAFF. SPO2 >92% ON RM AIR.MONITOR SHOWING SR 90'S. BP WNL AND STABLE W LEVOPHED GTT OFF. PT HAS DAVILA THAT IS PATENT AND DRAINING CLEAR YELLOW URINE.
[2023-09-02] MEDS ORDERED: NS 1,000 ML IV SCH (08:00)
[2023-09-02] MEDS ORDERED: Sodium Chloride 0.45% 1,000 ML IV SCH (08:00)
[2023-09-02] MEDS ORDERED: Enoxaparin 40 MG/0.4 ML SYR SC SCH (09:00)
--- NOTE | 2023-09-02 17:01 | NUR ---
EVENING SUMMARY THE PT WAS AN ICU TX LATE AFTERNOON FROM ICU 08 TO PCU 16. SHE IS A&OX4, CALLS APPROPRIATELY, AND CAN MAKE HER NEEDS KNOWN. THE PT HAS NS INFUSING PER EMAR AT 75ML/HR. SHE IS SR ON TELE, BP STABLE, AND SHE DENIES ANY ANGINA OR CHEST PRESSURE. SHE REMAINS ON RA W/ SP02 >90%. WE HAVE HAD TO MEDICATE HER BECAUSE OF FLANK PAIN AND HEADACHE. WHEN TRANSFERING THE PT IS A 1P SBA D/T WEAKNESS. NO ACUTE EVENTS THIS AFTERNOON. SEE NOTES FOR ANY UPDATES.
--- NOTE | 2023-09-02 21:57 | NUR ---
PATIENT INITIALLY ANIMATED, WITH MULTIPLE QUESTIONS AND WONDERING WHY SHE COULD NOT HAVE HER MEDICATION IMMEDIATELY. EXPLAINED THAT THERE NEEDED TO BE TIME IN BETWEEN PAIN MEDICATION DOSES, AND GIVING SLEEPING PILLS AT 1930, MAY LEAD TO THEM WEARING OFF TO SOON.
[2023-09-03 03:01] VITALS: BP 131/82
[2023-09-03 04:03] LABS: Hematocrit 31.9 % (33.0-51.0); Hemoglobin 10.4 g/dL (11.5-16.0); Mean Corpuscular HGB 31.2 pg (26.0-34.0); Mean Corpuscular HGB Conc 32.6 g/dL (31.5-36.5); Mean Corpuscular Volume 96 fL (80-100); Mean Platelet Volume 10.4 fL (9.1-12.4); Platelet Count 190 K/mm3 (150-400); RDW Coefficient Variation 13.6 % (11.7-14.2); RDW Standard Deviation 48.1 fL (35.1-46.3); Red Blood Cell Count 3.33 M/mm3 (3.80-5.20)
--- NOTE | 2023-09-03 04:04 | NUR ---
PATIENT AWAKE AND ALERT, ABLE TO AMBULATE TO BATHROOM, WITHOUT DIFFICULTY. VOIDING WELL POST DAVILA REMOVAL. MEDICATED WITH AMBIEN FOR SLEEP, AND BECOMING VERY GIGGLELY. WHEN AWAKENED. REMAINING THAT WAY THROUGHOUT REST OF SHIFT.
[2023-09-03 04:49] LABS: BAND PERCENT MAN 2 % (0-8); BASOPHILS PERCENT MAN 0 % (0-2); EOSINOPHILS ABSOLUTE MAN 0.11 K/mm3 (0.00-0.68); EOSINOPHILS PERCENT MAN 1 % (0-6); LYMPHOCYTES ABSOLUTE MAN 0.57 K/mm3 (0.84-5.20); LYMPHOCYTES PERCENT MAN 5 % (21-46); METAMYELOCYTE ABSOLUTE MAN 0.11 K/mm3 (0.00-0.00); METAMYELOCYTE PERCENT MAN 1 % (0-0); MONOCYTES ABSOLUTE MAN 0.79 K/mm3 (0.16-1.47); MONOCYTES PERCENT MAN 7 % (4-13); SEG NEUTROPHILS PERCENT MAN 84 % (41-73); TOTAL CELLS COUNTED 100
[2023-09-03 06:12] LABS: Albumin, Blood 1.9 g/dL (3.4-5.0); Albumin/Globulin Ratio 0.4 (0.8-1.8); Bilirubin, Total 0.4 mg/dL (0.1-1.0); Bun/Creatinine Ratio 26.5 (12.0-20.0); Calcium, Blood 8.5 mg/dL (8.5-10.1); Creatinine, Blood 1.13 mg/dL (0.40-1.00); Globulin, Blood 4.6 g/dL (2.2-4.0); Magnesium, Blood 2.2 mg/dL (1.6-2.4); Phosphorus, Blood 2.8 mg/dL (2.5-4.9); Potassium, Blood 4.2 mmol/L (3.5-5.5); Total Protein, Blood 6.5 g/dL (6.4-8.2)
[2023-09-03 07:48] VITALS: BP 127/83
--- NOTE | 2023-09-03 13:27 | NUR ---
ASSUMED CARE OF PT AT 0700 THIS AM. PT HAS COMPLAINED OF A HEADACHE T/O THE MORNING AND AFTERNOON, MEDICATED PER EMAR WITH GOOD EFFECT. PT NOTED TO HAVE GENERALIZED 1+ EDEMA ON ASSESSMENT, PT STATES "MY HANDS FEEL PUFFY." DR AREVALO NOTIFIED AND IVF STOPPED. PT IS DRINKING PO FLUIDS WELL AND URINATING OFTEN. DR AREVALO ROUNDS THIS AM AND PT IS MADE MEDICAL NO-TELE STATUS. PT ABLE TO AMBULATE IN ROOM WITH A STEADY GAIT, BUT EXPRESSES CONCERN ABOUT BEING ABLE TO WALK UP THE 20 STAIRS TO HER APPARTMENT. THIS RN REASSURES PT THAT SHE WILL GET STRONGER AFTER THIS ACUTE ILLNESS AND SHE WILL NOT BE DISCHAGED BEFORE SHE IS READY. SEE DOCUMENTED VS AND ASSESSMENT. PT IS ABLE TO USE CALL LIGHT FOR NEEDS, CALL LIGHT IN REACH. WILL CONTINUE TO MONITOR.
[2023-09-03] MEDS ORDERED: Benzonatate 100 MG Cap PO PRN (14:05)
[2023-09-03 15:45] VITALS: BP 143/75
[2023-09-03] MEDS ORDERED: HYDROmorphone HCl/Pf 1MG SYR IV PRN (16:00)
[2023-09-03] MEDS ORDERED: Famotidine 20 MG Tab PO SCH (16:30)
--- NOTE | 2023-09-03 17:16 | NUR ---
LATE THE AFTERNOON, PT C/O 9/10 HEADACHE. MEDICATIONS PRESCRIBED ARE NOT CONTROLLING HER PAIN. SHE IS RESTLESS, WINCING, STATES COUGHING MAKES IT WORSE. SHE CONTINUES TO EXPRESS CONCERN ABOUT CLIMBING HER STAIRS AFTER DISCHARGE. DR AREVALO CONTACTED AND NEW ORDERS PLACED FOR TESSALON PEARLS AND PHYSICAL THERAPY. DR AREVALO NOTIFIED THAT PT DECLINES LOVENOX INJECTIONS, ORDER DISCONTINUED. PT MEDICATED FOR PAIN PER NEW ORDERS AND SHE EXPRESSES SIGNIFICANT RELEIF, PAIN REPORTED AT 2/10. NO OTHER CHANGES SINCE LAST NOTE. PT IS ABLE TO USE CALL LIGHT FOR NEEDS, CALL LIGHT IN REACH. WILL CONTINUE TO MONITOR AND GIVE REPORT TO NOC SHIFT RN AT THE END OF MY SHIFT.
[2023-09-03 20:00] VITALS: BP 111/92
--- NOTE | 2023-09-03 20:54 | NUR ---
ASSUMED CARE OF PT. PT IS ALERT AND ORIENTED. VERY JOVIOL IN SPIRIT, LAUGHING FREQ. PT MOVING ALL EXTREMETIES. SHE SEEMS SIMPLE IN CONVERSATION. PT HAS CLEAR LUNGS T/O, ABD IS DISTENDED BUT IS NORMAL FOR PT, PT HAS EDEMA TO EXTREM T/O 1+. PT STATES HER SKIN FEELS WARM AND TAUGHT. PT HAS A PIV TO RIGHT AC, BLOOD COMES BACK FROM IT HOWEVER IT IS SALINE LOCKED. PT IS ABLE TO GET UP ON HER OWN AND VOID WITHOUT ASSITANCE. SHE VOIDS FREQ. PT COMPLAINED OF PAIN TO HEAD AND LOWER BACK AND TYLENOL AND DILAUDID WERE GIVEN FOR PAIN TX. VS STABLE AND PT IS AFEBRILE.
[2023-09-03] MEDS ORDERED: HyDROXyzine HCl 25 MG Tab PO SCH (21:00)
--- NOTE | 2023-09-03 23:59 | NUR ---
REPORT GIVEN TO MEDICAL FLOOR RN. PT MOVING TO ROOM 301.
[2023-09-04 02:30] VITALS: BP 148/91
[2023-09-04 04:56] LABS: Hematocrit 31.6 % (33.0-51.0); Hemoglobin 10.2 g/dL (11.5-16.0); Mean Corpuscular HGB 31.2 pg (26.0-34.0); Mean Corpuscular HGB Conc 32.3 g/dL (31.5-36.5); Mean Corpuscular Volume 97 fL (80-100); Mean Platelet Volume 9.7 fL (9.1-12.4); Platelet Count 216 K/mm3 (150-400); RDW Coefficient Variation 13.4 % (11.7-14.2); RDW Standard Deviation 48.4 fL (35.1-46.3); Red Blood Cell Count 3.27 M/mm3 (3.80-5.20)
[2023-09-04 05:19] LABS: Calcium, Blood 8.8 mg/dL (8.5-10.1); Magnesium, Blood 1.9 mg/dL (1.6-2.4); Potassium, Blood 4.1 mmol/L (3.5-5.5)
[2023-09-04 05:31] LABS: BAND PERCENT MAN 2 % (0-8); BASOPHILS PERCENT MAN 0 % (0-2); EOSINOPHILS PERCENT MAN 0 % (0-6); LYMPHOCYTES ABSOLUTE MAN 0.18 K/mm3 (0.84-5.20); LYMPHOCYTES PERCENT MAN 2 % (21-46); METAMYELOCYTE ABSOLUTE MAN 0.09 K/mm3 (0.00-0.00); METAMYELOCYTE PERCENT MAN 1 % (0-0); MONOCYTES ABSOLUTE MAN 0.46 K/mm3 (0.16-1.47); MONOCYTES PERCENT MAN 5 % (4-13); NEUTROPHILS ABSOLUTE MAN 8.46 K/mm3 (1.96-9.15); SEG NEUTROPHILS PERCENT MAN 90 % (41-73); TOTAL CELLS COUNTED 100
--- NOTE | 2023-09-04 06:18 | NUR ---
SHIFT SUMMARY: PATIENT ARRIVED ON UNIT FROM PCU AT MIDNIGHT. PATIENT WAS FULLY ORIENTED AND PLEASANT, COOPERATING WITH STAFF. PATIENT IS ABLE TO AMBULATE IN ROOM INDEPENDENTLY WITH A FWW, GOING SPONTANEOUSLY AND WITH CONTINENCE TO THE BATHROOM. PATIENT COMPLAINED AND HEAD AND BACK PAIN, ASKING FOR TYLENOL, ROXICODONE, AND DILAUDID THROUGH SHIFT. MILD EDEMA GENERALIZED THROUGH BODY, WITH REDNESS UNDERNEATH HER ABDOMINAL PANICCULUS ADIPOSIS.
[2023-09-04 07:09] VITALS: BP 121/72
--- NOTE | 2023-09-04 13:31 | NUR ---
1078- THIS RN CALLED DR. AREVALO AND INFORMED HER PT REFUSED A POWERGLIDE MIDWAY THROUGH THE PROCEDURE WHEN DALTON CARBONE RN WAS TRYING TO PLACE IT. PT HAS BEEN EDUCATED BY THIS RN AND DALTON CARBONE REGARDING THE NECESSITY OF THE LINE, BUT PT IS STILL REFUSING. PT AWARE SHE NEEDS IV ABX FOR 2 WEEKS OUTPT. MD AREVALO STATED SHE WOULD ATTEMPT TO SPEAK WITH THE PT. MD CAME TO BEDSIDE AND SPOKE WITH PT.
[2023-09-04 15:38] VITALS: BP 144/88
--- NOTE | 2023-09-04 18:24 | NUR ---
SUMMARY- PT AAOX3 THIS SHIFT. PT DOES NOT COMPLETELY UNDERSTAND HER SITUATION. IND IN ROOM W/WALKER. SISTER UPDATED REGARDING PT'S SITUATION PER PT'S PERMISSION. PT REFUSED POWER GLIDE TODAY IN PREPARATION FOR X2 WEEKS OF ABX. PERIPHERAL IV WAS PLACED IN L FA AFTER PT'S REQUEST.
[2023-09-04 19:50] VITALS: BP 128/80
[2023-09-05 03:14] VITALS: BP 122/68
[2023-09-05 05:15] LABS: Hematocrit 32.5 % (33.0-51.0); Hemoglobin 10.3 g/dL (11.5-16.0); Mean Corpuscular HGB 30.6 pg (26.0-34.0); Mean Corpuscular HGB Conc 31.7 g/dL (31.5-36.5); Mean Corpuscular Volume 96 fL (80-100); Mean Platelet Volume 9.4 fL (9.1-12.4); Platelet Count 254 K/mm3 (150-400); RDW Coefficient Variation 13.2 % (11.7-14.2); RDW Standard Deviation 47.2 fL (35.1-46.3); Red Blood Cell Count 3.37 M/mm3 (3.80-5.20)
[2023-09-05 05:44] LABS: Bun/Creatinine Ratio 21.7 (12.0-20.0); Calcium, Blood 8.6 mg/dL (8.5-10.1); Creatinine, Blood 1.06 mg/dL (0.40-1.00); Magnesium, Blood 1.3 mg/dL (1.6-2.4); Phosphorus, Blood 3.5 mg/dL (2.5-4.9)
[2023-09-05 05:50] LABS: BAND PERCENT MAN 2 % (0-8); BASOPHILS PERCENT MAN 0 % (0-2); EOSINOPHILS PERCENT MAN 0 % (0-6); LYMPHOCYTES ABSOLUTE MAN 1.03 K/mm3 (0.84-5.20); LYMPHOCYTES PERCENT MAN 12 % (21-46); MONOCYTES ABSOLUTE MAN 0.94 K/mm3 (0.16-1.47); MONOCYTES PERCENT MAN 11 % (4-13); MYELOCYTE ABSOLUTE MAN 0.17 K/mm3 (0.00-0.00); MYELOCYTE PERCENT MAN 2 % (0-0); NEUTROPHILS ABSOLUTE MAN 6.45 K/mm3 (1.96-9.15); SEG NEUTROPHILS PERCENT MAN 73 % (41-73); TOTAL CELLS COUNTED 100
--- NOTE | 2023-09-05 05:50 | NUR ---
SHIFT SUMMARY: PATIENT FULLY ORIENTED, COOPERATIVE, SELF-AMBULATORY, ANXIOUS MOOD. PATIENT HAD FREQUENT PAIN MED PRN NEEDS, IN ADDITION TO BENZONATATE FOR DRY COUGH. PATIENT SLEPT INTERMITTENTLY THROUGH NIGHT.
[2023-09-05 07:06] VITALS: BP 133/83
[2023-09-05] MEDS ORDERED: Mag Sulfate 1 GM/D5% 100ML 100 ML IV STA (08:07)
[2023-09-05] MEDS ORDERED: CefTRIAXone Sodium 2,000 MG in NS 100 ML IV SCH (09:00)
[2023-09-05] MEDS ORDERED: BENZ100A PO (14:54)
[2023-09-05] MEDS ORDERED: LACT PO (14:55)
[2023-09-05] MEDS ORDERED: CIPR500 PO (14:56)
[2023-09-05 15:00] VITALS: BP 149/88
--- NOTE | 2023-09-05 15:16 | NUR ---
DISCHARGE PT EDUCATED ON AND RECEIVED PRINTED DC INSTRUCTIONS AND VERBALIZED AN UNDERSTANDING. IV DC'D. PT INDEP GETTING DRESSING AND PACKED ALL OF HER PERSONAL BELONGINGS. PT WAITING FOR MEDICAL TRANSPORT TO ARRIVE AT APPROX 1600 TO TAKE PT TO HER PHARMACY AND HOME. MEDS FAXED TO [email or web address] BY [employer] [facility].
== END 2023-09-05 15:55 | disposition home or self-care (01) | DRG 871 ==
LOC: ER 02:01 → ERHOLD 08:44 → ICUE 11:26 → MEDS 11:26 → ERHOLD 11:26 → ICUE 12:30 → PCU 09-02 15:57 → MEDS 09-04 00:11
PROVIDERS: Emergency Medicine; Student in an Organized Health Care Education/Training Program; ADMIT Hospitalist
PROC: 0T9B70Z Drainage of Bladder with Drainage Device, Via Natural or Artificial Opening (ICD-10-PCS; principal; 2023-09-01)
PROC: 3E033XZ Introduction of Vasopressor into Peripheral Vein, Percutaneous Approach (ICD-10-PCS; 2023-09-01)
PROC: 3E03329 Introduction of Other Anti-infective into Peripheral Vein, Percutaneous Approach (ICD-10-PCS; 2023-09-05)
DX: A41.51 Sepsis due to Escherichia coli [E. coli] (principal); J96.01 Acute respiratory failure with hypoxia; R65.21 Severe sepsis with septic shock; N12 Tubulo-interstitial nephritis, not specified as acute or chronic; N17.9 Acute kidney failure, unspecified; K57.92 Diverticulitis of intestine, part unspecified, without perforation or abscess without bleeding; E78.5 Hyperlipidemia, unspecified; F32.A Depression, unspecified; F41.9 Anxiety disorder, unspecified; M19.019 Primary osteoarthritis, unspecified shoulder; Z87.19 Personal history of other diseases of the digestive system; Z90.49 Acquired absence of other specified parts of digestive tract; Z98.890 Other specified postprocedural states; Z96.611 Presence of right artificial shoulder joint; Z88.5 Allergy status to narcotic agent; Z79.899 Other long term (current) drug therapy; F17.210 Nicotine dependence, cigarettes, uncomplicated; M19.011 Primary osteoarthritis, right shoulder
CPT/HCPCS: 36415; 51702; 74176; 80048; 80053; 81001; 83605; 83735; 84100; 85025; 87040; 87077; 87086; 87186; 93005; 93010; 93306; 94762; 96361-59; 96365-59; 96366-59; 96375-59; 97110; 97116; 97161; 97165; 97530; 97535; 99285-25; A9270; J0696; J0744; J0780; J1170; J1650; J2060; J2405; J3010; J3370; J3475; J7030; J7050; J7060; J7120

== ENCOUNTER 2023-09-21 10:37 | Emergency (ER) | payer MEDICARE, OTHER ==
[~2023-09-21] VITALS: Ht 154.9 cm; Wt 74.8 kg
[~2023-09-21 10:37] MED LIST changes: +BUPROPION HCL200 M1 PO; +ESTRADIOL42.5 GM VAG; +Hydroxyzine HCl50 MG; +LACT PO; +OMEP20ER PO; +ROSUVASTATIN CA20 MG PO; +ZOLPIDEM TARTRA10 MG PO
[2023-09-21 10:43] VITALS: BP 141/99
[2023-09-21] MEDS ORDERED: Ondansetron HCl 2 MG / ML 2ML Vial IV PRN (10:50)
[2023-09-21 10:56] LABS: BASOPHILS ABSOLUTE AUTO 0.04 K/mm3 (0.00-0.23); BASOPHILS PERCENT AUTO 0 % (0-2); EOSINOPHILS ABSOLUTE AUTO 0.06 K/mm3 (0.00-0.68); EOSINOPHILS PERCENT AUTO 1 % (0-6); Hematocrit 37.3 % (33.0-51.0); Hemoglobin 12.6 g/dL (11.5-16.0); IMMATURE GRAN ABSOLUTE AUTO 0.08 K/mm3 (0.00-0.10); IMMATURE GRAN PERCENT AUTO 1 % (0-1); LYMPHOCYTES ABSOLUTE AUTO 2.03 K/mm3 (0.84-5.20); LYMPHOCYTES PERCENT AUTO 22 % (21-46); MONOCYTES PERCENT AUTO 9 % (4-13); Mean Corpuscular HGB 31.4 pg (26.0-34.0); Mean Corpuscular HGB Conc 33.8 g/dL (31.5-36.5); Mean Corpuscular Volume 93 fL (80-100); Mean Platelet Volume 9.2 fL (9.1-12.4); NEUTROPHILS PERCENT AUTO 67 % (41-73); Platelet Count 270 K/mm3 (150-400); RDW Coefficient Variation 12.7 % (11.7-14.2); RDW Standard Deviation 43.2 fL (35.1-46.3); Red Blood Cell Count 4.01 M/mm3 (3.80-5.20); White Blood Cell Count 9.11 K/mm3 (4.00-11.30)
[2023-09-21 11:20] LABS: Albumin, Blood 3.6 g/dL (3.4-5.0); Albumin/Globulin Ratio 0.8 (0.8-1.8); Bilirubin, Total 0.3 mg/dL (0.1-1.0); Bun/Creatinine Ratio 12.5 (12.0-20.0); Calcium, Blood 9.4 mg/dL (8.5-10.1); Creatinine, Blood 0.96 mg/dL (0.40-1.00); Globulin, Blood 4.3 g/dL (2.2-4.0); Total Protein, Blood 7.9 g/dL (6.4-8.2)
[2023-09-21 12:16] LABS: Source, Urine Clean Catch
[2023-09-21 12:28] LABS: Appearance, Urine Clear (Clear); Bilirubin, Urine Neg (Neg); Blood, Urine 2+ (Neg); Color, Urine Yellow (P-Yellow); Glucose Qualitative, Urine Neg (Neg); Ketones, Urine Neg (Neg); Leukocyte Esterase, Urine Neg (Neg); Nitrite, Urine Neg (Neg); Protein, Urine 3+ (Neg); Specific Gravity, Urine 1.015 (1.003-1.022); Urobilinogen, Urine NORM (Normal)
[2023-09-21 12:37] LABS: Red Blood Cells, Urine 0-2 /hpf (0-2); White Blood Cells, Urine 0-2 /hpf (0-5)
[2023-09-21 12:38] LABS: Bacteria Rare /hpf; Hyaline Casts 0-2 /lpf (0-2)
[2023-09-21 12:39] LABS: Squamous Epithelial Cells Rare /hpf (Few)
== END 2023-09-21 14:34 | disposition home or self-care (01) ==
LOC: ER 10:37
PROVIDERS: Emergency Medicine; Physician Assistant
DX: R53.1 Weakness (principal); Z88.5 Allergy status to narcotic agent; Z79.899 Other long term (current) drug therapy; E78.5 Hyperlipidemia, unspecified; F17.210 Nicotine dependence, cigarettes, uncomplicated
CPT/HCPCS: 80053; 81001; 83735; 85025; 93005; 93010; 96374; 99284-25; J2405

== ENCOUNTER 2024-03-13 23:45 | Emergency (ER) | payer MEDICARE, OTHER ==
[~2024-03-13] VITALS: Ht 157.5 cm; Wt 83.9 kg
[2024-03-14 00:43] LABS: Alanine Aminotransfer (ALT/SGP 27 U/L (12-78); Albumin, Blood 3.8 g/dL (3.4-5.0); Albumin/Globulin Ratio 1.1 (0.8-1.8); Alk Phos 73 U/L (50-136); Anion Gap 11 mmol/L (3-11); Aspartate Aminotrans (AST/SGOT 18 U/L (12-37); Bilirubin, Total 0.3 mg/dL (0.1-1.0); Blood Urea Nitrogen 15 mg/dL (8-24); Bun/Creatinine Ratio 17.2 (12.0-20.0); CO2, Blood 23 mmol/L (21-32); Calcium, Blood 9.2 mg/dL (8.5-10.1); Chloride, Blood 109 mmol/L (98-108); Creatinine, Blood 0.87 mg/dL (0.40-1.00); Ethanol (Alcohol), Blood, Med <3 mg/dL; Free Thyroxine 0.87 ng/dL (0.70-1.60); Globulin, Blood 3.4 g/dL (2.2-4.0); Glomerular Filtration Rate 77 (60-); Glucose, Blood 120 mg/dL (70-99); Sodium, Blood 139 mmol/L (136-145); Total Protein, Blood 7.2 g/dL (6.4-8.2)
[2024-03-14 00:57] LABS: Source, Urine Clean Catch
[2024-03-14 01:14] LABS: BASOPHILS ABSOLUTE AUTO 0.02 K/mm3 (0.00-0.23); BASOPHILS PERCENT AUTO 0 % (0-2); EOSINOPHILS ABSOLUTE AUTO 0.07 K/mm3 (0.00-0.68); EOSINOPHILS PERCENT AUTO 1 % (0-6); Hematocrit 35.8 % (33.0-51.0); IMMATURE GRAN ABSOLUTE AUTO 0.02 K/mm3 (0.00-0.10); IMMATURE GRAN PERCENT AUTO 0 % (0-1); LYMPHOCYTES ABSOLUTE AUTO 1.72 K/mm3 (0.84-5.20); LYMPHOCYTES PERCENT AUTO 27 % (21-46); MONOCYTES ABSOLUTE AUTO 0.52 K/mm3 (0.16-1.47); MONOCYTES PERCENT AUTO 8 % (4-13); Mean Corpuscular HGB 31.4 pg (26.0-34.0); Mean Corpuscular HGB Conc 33.5 g/dL (31.5-36.5); Mean Corpuscular Volume 94 fL (80-100); Mean Platelet Volume 9.2 fL (9.1-12.4); NEUTROPHILS ABSOLUTE AUTO 3.97 K/mm3 (1.96-9.15); NEUTROPHILS PERCENT AUTO 63 % (41-73); Platelet Count 189 K/mm3 (150-400); RDW Coefficient Variation 13.1 % (11.7-14.2); RDW Standard Deviation 44.6 fL (35.1-46.3); Red Blood Cell Count 3.82 M/mm3 (3.80-5.20); White Blood Cell Count 6.32 K/mm3 (4.00-11.30)
[2024-03-14 01:22] LABS: Influenza A, PCR NEGATIVE (NEGATIVE); Influenza B, PCR NEGATIVE (NEGATIVE); Resp Syncytial Virus, PCR NEGATIVE (NEGATIVE); SARS-Cov-2 (COVID-19) PCR, MMC NEGATIVE (NEGATIVE)
[2024-03-14 01:39] LABS: Bilirubin, Urine Neg (Neg); Blood, Urine 2+ (Neg); Glucose Qualitative, Urine Neg (Neg); Ketones, Urine Neg (Neg); Leukocyte Esterase, Urine Neg (Neg); Nitrite, Urine Neg (Neg); Protein, Urine 3+ (Neg); Urobilinogen, Urine NORM (Normal)
[2024-03-14 01:51] LABS: Appearance, Urine Clear (Clear); Color, Urine Pale Yellow (P-Yellow)
[2024-03-14 01:52] LABS: Bacteria Rare /hpf; Red Blood Cells, Urine 0-2 /hpf (0-2); Squamous Epithelial Cells Rare /hpf (Few); White Blood Cells, Urine 0-2 /hpf (0-5)
[2024-03-14 01:55] LABS: U Amphetamine Screen Not Detected; U Barbituate Screen Not Detected; U Benzodiazapine Screen Not Detected; U Buprenorphine Screen Not Detected; U Cannabinoids Screen Not Detected; U Cocaine Screen Not Detected; U Methadone Screen Not Detected; U Methamphetamine Screen Not Detected; U Opiates Screen Not Detected; U Oxycodone Screen Not Detected; U Phencyclidine Screen Not Detected
[2024-03-14] MEDS ORDERED: OLANZapine 5 MG Tab PO ONE (02:40)
[2024-03-14] MEDS ORDERED: OLANZapine 10 MG Vial IM ONE (02:45)
[2024-03-14] MEDS ORDERED: HyDROXyzine HCl 25 MG Tab PO ONE (04:05)
[2024-03-14 07:40] VITALS: BP 142/92
[2024-03-14] MEDS ORDERED: Acetaminophen 500 MG Tab PO ONE (08:35)
[2024-03-14] MEDS ORDERED: Citalopram Hydrobromide 20 MG Tab PO SCH (09:00)
[2024-03-14] MEDS ORDERED: Rosuvastatin Calcium 10 MG Tab PO SCH (09:00)
== END 2024-03-14 10:18 | disposition home or self-care (01) ==
LOC: ER 23:45
PROVIDERS: Emergency Medicine
DX: R41.0 Disorientation, unspecified (principal); F17.210 Nicotine dependence, cigarettes, uncomplicated; E78.5 Hyperlipidemia, unspecified; M19.90 Unspecified osteoarthritis, unspecified site; Z79.899 Other long term (current) drug therapy; Z88.5 Allergy status to narcotic agent
CPT/HCPCS: 0241U; 51702; 70450; 71045; 80053; 80320; 81001; 84439; 84443; 85025; 93005; 93010; 96372; 99285; A9270

== ENCOUNTER 2024-11-09 06:19 | Day surgery (SDC) | payer MEDICARE, OTHER ==
[~2024-11-09] VITALS: Ht 157.5 cm; Wt 100.1 kg
[~2024-11-09 06:19] MED LIST changes: +NS 1,000 ML IV ONE
[2024-11-09] MEDS ORDERED: CefTRIAXone Sodium 2,000 MG in NS 100 ML IV SCH (06:25)
[2024-11-09] MEDS ORDERED: QUETIAPINE FUMA5012 PO (06:44)
[2024-11-09] MEDS ORDERED: Lidocaine HCl 4% 5 ML SDA ONE (07:14)
[2024-11-09] MEDS ORDERED: Ropivacaine 0.5% HCL/PF 5 MG/ML 30ML Vial ONE (07:14)
[2024-11-09] MEDS ORDERED: Ondansetron HCl 2 MG / ML 2ML Vial ONE ×2 (07:15→10:08)
[2024-11-09] MEDS ORDERED: Dexamethasone Sod Phos 10 MG/ML 1ML VIAL ONE (07:15)
[2024-11-09] MEDS ORDERED: Rocuronium Bromide 10 MG/ML 5ML Injection IV ONE (07:15)
[2024-11-09] MEDS ORDERED: FentaNYL Citrate 50 MCG/ML 2 ML Injection ONE ×2 (07:18→09:00)
[2024-11-09] MEDS ORDERED: Midazolam HCl 1MG / ML 2ML Vial ONE (07:18)
--- NOTE | 2024-11-09 07:33 | NUR ---
11/09/24 0733 MAXWELL RONQUILLO ANESTHESIA HAD IT ISSUES CAUSING PT TO GO BACK FROM OR LATE
[2024-11-09] MEDS ORDERED: Sugammadex Sodium 200 MG/2ML SDV (100 MG/ML) ONE (08:22)
--- NOTE | 2024-11-09 10:10 | NUR ---
11/09/24 1010 TEODORO CURTIS PT C/O NAUSEA, REMOVED O2. PT KEEPS REPEATING THAT SHE IS SCARED. SHE STATES SHE FEELS HIGH. PULLED ZOFRAN FOR NAUSEA. PT IN AND OUT OF TALKING/WAKEFULLNESS
[2024-11-09 10:34] VITALS: BP 155/93
--- NOTE | 2024-11-09 10:51 | NUR ---
11/09/24 1051 TEODORO CURTIS POLAR PACK ATTACHED. PT HAS A POLAR PACK AT HOME AND STATES SHE KNOWS HOW TO USE IT. PT IN RECLINER, TALKATIVE. DECLINES WARM BLANKET, ADJUSTED SLING TO FIT AND SUPPORT HER ARM/HAND. DECLINES FOOD. \\ DENIES PAIN IN HER SHOULDER, NAUSEA IS NOW GONE. FEELS "FUNKY". STATES THAT SHE IS STARTING TO NOT BE SCARED. PT ON 2L O2 AT PRESENT. SATING AT 97%
== END 2024-11-09 11:48 | disposition home or self-care (01) ==
LOC: ORSCSDS 06:19
PROVIDERS: Orthopaedic Surgery
PROC: 0RBK4ZZ Excision of Left Shoulder Joint, Percutaneous Endoscopic Approach (ICD-10-PCS; principal; 2024-11-09 07:30)
DX: M75.42 Impingement syndrome of left shoulder (principal); M75.112 Incomplete rotator cuff tear or rupture of left shoulder, not specified as traumatic; E78.5 Hyperlipidemia, unspecified; G47.33 Obstructive sleep apnea (adult) (pediatric); J45.909 Unspecified asthma, uncomplicated; F41.9 Anxiety disorder, unspecified; F32.A Depression, unspecified; Z79.899 Other long term (current) drug therapy; Z85.118 Personal history of other malignant neoplasm of bronchus and lung; Z87.891 Personal history of nicotine dependence
CPT/HCPCS: J0166; J0696; J1100; J2003; J2250; J2405; J2704; J2795; J3010; J7030